=== PATIENT | female | born 1975 | race Caucasian/White ===

== ENCOUNTER 2017-12-04 12:46 | Inpatient (IN) | payer OTHER ==
[~2017-12-04] VITALS: Ht 160 cm; Wt 68.0 kg
== END 2017-12-09 14:02 | disposition home or self-care (01) | DRG 392 ==
LOC: ER 12:46 → MEDI 17:52
PROC: BW21Y0Z Computerized Tomography (CT Scan) of Abdomen and Pelvis using Other Contrast, Unenhanced and Enhanced (ICD-10-PCS; principal; 2017-12-04)
DX: K57.32 Diverticulitis of large intestine without perforation or abscess without bleeding (principal)

== ENCOUNTER 2018-03-16 09:15 | Inpatient (IN) | payer OTHER ==
[~2018-03-16] VITALS: Ht 160 cm; Wt 81.6 kg
[2018-04-05] MEDS ORDERED: HYOSCYAMINE0.125 M1 SL (10:56)
[2018-04-05] MEDS ORDERED: OXYC1TAB9 PO (10:57)
== END 2018-04-05 11:57 | disposition home or self-care (01) | DRG 331 ==
LOC: EDSTATUS 09:15 → ADM 09:15 → SURG 04-01 07:14 → O/R 04-01 07:14 → SURG 04-01 09:15
PROVIDERS: Surgery
PROC: 0DJD8ZZ Inspection of Lower Intestinal Tract, Via Natural or Artificial Opening Endoscopic (ICD-10-PCS; 2018-04-01)
PROC: 0DTN4ZZ Resection of Sigmoid Colon, Percutaneous Endoscopic Approach (ICD-10-PCS; principal; 2018-04-01 12:45)
DX: K57.32 Diverticulitis of large intestine without perforation or abscess without bleeding (principal)